=== PATIENT | female | born 1990 | race Caucasian/White ===

== ENCOUNTER 2019-08-15 09:53 | Day surgery (SDC) | payer BC, SELFPAY ==
[2019-08-15] VITALS (8 sets, daily range): BP systolic 103–129; BP diastolic 48–81; PULSE 78–105; RESP 14–17; TEMP 36.7–37; O2SAT 96–99; BMI 28.1
[2019-08-15] MEDS: Ondansetron 4 MG/2 ML Vial IV (10:21)
[2019-08-15] MEDS: Morphine 4 MG/ML Syringe IV (10:21)
[2019-08-15] MEDS: 0.9% Normal Saline 1,000 ML 1000 ML IV (10:22)
--- NOTE | 2019-08-15 10:40 | ED.VIS.GEN ---
History of Present Illness Chief Complaint: Abd Pain Informant: Patient Onset: Today Context: Gradual Onset Timing: Intermittent Current Severity: Moderate Maximum Severity: Moderate Narrative: The patient presents to the emergency department with left lower quadrant abdominal pain and dizziness. She also had nausea. The patient states she was in her normal state of health. She is currently trying to get . She states that she had a sharp pain that started this morning. States when she tries to move her bowels, she would be dizzy. She has not had any vomiting. She denies any fevers or chills. She has had 2 prior C-sections, but no other abdominal surgery. Prior similar symptoms: No Recent Illness/Hospitalization: No Past Medical History - Allergies and Home Meds Allergies/Adverse Reactions: Allergies amoxicillin Allergy (Verified 08/15/19 09:54) Rash Primary Care Physician: Ene Andres NP-C [Primary Care Provider] - Prior records reviewed: Yes Past Medical History: None Surgical History: - - by 2 Lives: With Family Smoking Status: Never smoker Review of Systems General: Denies: Chills, Fever, Sweats Eyes: Denies: Visual changes - bilaterally, Diplopia ENT: Denies: Rhinorrhea, Sore throat Cardiovascular: Denies: Chest pain, Palpitations Respiratory: Denies: Dyspnea, Cough, Dyspnea on exertion Gastrointestinal: Reports: Abdominal pain, Nausea. Denies: Vomiting, Diarrhea, Melena, Hematochezia Genitourinary: Denies: Dysuria, Hematuria, Frequency Musculoskeletal: Denies: Back pain, Extremity Pain Skin: Denies: Rash, Wounds Neurological: Denies: Headache, Weakness, Numbness Physical Exam Vital Signs/Narrative: Vital Signs Temp Pulse Resp BP Pulse Ox 08/15/19 09:54 98.5 F 93 17 129/81 H 96 Inital Vital Signs reviewed: Yes General: Well nourished, Well developed, No Acute Distress Head: Normocephalic, Atraumatic Eyes: Perrl, EOMI ENT: Moist mucous membranes, No rhinorrhea Neck: Supple, Nontender Cardiovascular: Regular rate, Regular rhythm, No murmurs Respiratory: No distress, CTA bilaterally, Chest nontender Abdomen: Soft, Nondistended, Normal bowel sounds, Tender. Negative for: Guarding, Rebound tenderness Back: Nontender, Normal Inspection Extremities: Nontender, No edema Skin: Normal color, No rash Neurological: Alert, Oriented x3, Cranial nerves II-XII grossly intact, Normal Strength, Normal Sensation Psychological: Normal affect, Normal Mood Diagnostic/Tx/Re-eval Clinical Impression(s) from Imaging Studies Obstetrics Ultrasound 08/15/19 11:32 IMPRESSION: Left adnexal mass with suspected hemoperitoneum concerning for ruptured ectopic . N.B. : The above information has been verbally conveyed by Crow Luis MD (Brooks) to Adan Lu MD, on 08/15/2019 12:42:45 (ET). Electronically Signed: Crow Luis MD (Brooks) at 12:47 EDT , Service support , ADDENDUM: 08/15/19 1254 IMPRESSION: Left adnexal mass with suspected hemoperitoneum concerning for ruptured ectopic . N.B. : The above information has been verbally conveyed by Crow Luis MD (Brooks) to Adan Lu MD, on 08/15/2019 12:42:45 (ET). Electronically Signed: Crow Luis MD (Brooks) at 12:47 EDT , Service support , Abnormal Lab Results 08/15/19 08/15/19 08/15/19 10:10 10:10 10:10 WBC 5.6 RBC 4.50 Hgb 14.2 Hct 40.7 MCV 90.4 MCH 31.6 MCHC 34.9 RDW Std Deviation 38.6 RDW Coeff of Juan 11.9 Plt Count 177 MPV 10.4 Immature Gran % (Auto) 0.500 Neut % (Auto) 77.0 H Lymph % (Auto) 14.6 L [place] % (Auto) 5.9 Eos % (Auto) 1.1 Baso % (Auto) 0.9 Absolute Neuts (auto) 4.3 Absolute Lymphs (auto) 0.82 L Nucleated RBC % 0 Sodium 139 Potassium 3.7 Chloride 107 Carbon Dioxide 27.0 Anion Gap 5 BUN 10 Creatinine 0.69 Estim Creat Clear Calc 112.62 Est GFR (MDRD) Af Amer 129 Est GFR (MDRD) Non-Af 106 BUN/Creatinine Ratio 14.5 Glucose 104 Calcium 9.0 Total Bilirubin 0.50 AST 17 ALT 27 Alkaline Phosphatase 48 Total Protein 7.3 Albumin 4.1 Globulin 3.2 Albumin/Globulin Ratio 1.3 HCG, Quant 2177 H Urine Color Urine Clarity Urine pH Ur Specific [place] Urine Protein Urine Glucose (UA) Urine Ketones Urine Occult Blood Urine Nitrite Urine Bilirubin Urine Urobilinogen Ur Leukocyte Esterase Urine RBC Urine WBC Ur Squamous Epith Cells Amorphous Sediment Urine Bacteria Urine Mucus 08/15/19 12:00 WBC RBC Hgb Hct MCV MCH MCHC RDW Std Deviation RDW Coeff of Juan Plt Count MPV Immature Gran % (Auto) Neut % (Auto) Lymph % (Auto) [place] % (Auto) Eos % (Auto) Baso % (Auto) Absolute Neuts (auto) Absolute Lymphs (auto) Nucleated RBC % Sodium Potassium Chloride Carbon Dioxide Anion Gap BUN Creatinine Estim Creat Clear Calc Est GFR (MDRD) Af Amer Est GFR (MDRD) Non-Af BUN/Creatinine Ratio Glucose Calcium Total Bilirubin AST ALT Alkaline Phosphatase Total Protein Albumin Globulin Albumin/Globulin Ratio HCG, Quant Urine Color Yellow Urine Clarity Sl. Cloudy Urine pH 7.0 Ur Specific [place] 1.010 Urine Protein Negative Urine Glucose (UA) Normal Urine Ketones Negative Urine Occult Blood Negative Urine Nitrite Negative Urine Bilirubin Negative Urine Urobilinogen Normal Ur Leukocyte Esterase 25 H Urine RBC 0 SEEN Urine WBC 0-5 SEEN Ur Squamous Epith Cells 10-25 SEEN Amorphous Sediment 1+ Urine Bacteria 0 SEEN Urine Mucus 0 SEEN - Medical Decision Making The patient presents with quadrant pain. She does state that she was trying to get , but thinks she had a normal menstrual. About 2 weeks ago. IV was established. Screening labs were obtained were unremarkable. The patient was not tachycardic or hypotensive. Her quant did return elevated at 2200. With this in her left lower quadrant pain, the patient was sent for a stat ultrasound. This does demonstrate findings consistent with ruptured ectopic. The patient's blood type is A+. She was discussed immediately with DRYER FEEDER and will be taken to the operating room for definitive treatment of ruptured ectopic. Impression 1. Ruptured ectopic ED Disposition - Plan for ED Patient: Referrals: Ene Andres, MAIKOL-C [Primary Care Provider] -
[2019-08-15 10:43] LABS: Absolute Lymphocyte Count 0.82 X10^3/uL (0.83-4.51); Absolute Neutrophil Count 4.3 X10^3/uL (2.0-7.7); Basophil# 0.05 X10^3/uL; Basophil% 0.9 % (0-1); Eosinophil# 0.06 X10^3/uL; Eosinophils% 1.1 % (0-5); Hematocrit 40.7 % (37-47); Hemoglobin 14.2 g/dL (12.0-15.0); Lymphocyte # 0.82 X10^3/ul (4.0); Lymphocyte % 14.6 % (19-41); Mean Corp Hgb Conc 34.9 g/dL (32-36); Mean Corpuscular Hgb 31.6 pg (27.0-32.0); Mean Corpuscular Volume 90.4 fL (81-99); Mean Platelet Vol. 10.4 fl (6.2-12.0); Monocyte# 0.33 X10^3/uL; Monocyte% 5.9 % (0-10); NRBC Flagged by Analyzer 0 % (0-5); Neutrophil # 4.31 X10^3/uL (2.7-7.7); Platelet Count 177 K/mm3 (150-450); RBC Distribution Width CV 11.9 % (11.6-14.6); RBC Distribution Width SD 38.6 fl (35.1-43.9); White Blood Count 5.6 K/mm3 (4.4-11.0)
[2019-08-15 11:08] LABS: ALB/GLOB Ratio 1.3 RATIO (0.9-2.4); AST(SGOT) 17 U/L (15-37); Alanine Aminotransfer ALT/SGPT 27 U/L (13-56); Albumin, Serum 4.1 g/dL (3.2-5.0); Alkaline Phosphatase 48 U/L (45-117); Anion Gap 5 (5-15); BUN 10 mg/dL (7-18); BUN/Creat Ratio 14.5 RATIO (10-20); Chloride 107 mmol/L (98-107); Creatinine, Serum 0.69 mg/dL (0.55-1.02); EST Glomerular Filtration Rate 106 mL/min (>60); Est Glom Filt Rate - Afr Amer 129 mL/min (>60); Estimated Creatinine Clearance 112.62 ml/min; Globulin 3.2 g/dL (2.2-4.2); Glucose 104 mg/dL (74-106); Potassium 3.7 mmol/L (3.5-5.1); Protein, Total 7.3 g/dL (6.4-8.2); Sodium Level 139 mmol/L (136-145)
[2019-08-15 11:30] LABS: hCG Titer Quant., Serum 2177 mIU/mL (1-3)
--- NOTE | 2019-08-15 11:32 | US_ITS ---
STUDY: FIRST TRIMESTER OBSTETRICAL ULTRASOUND REASON FOR EXAM: Female, 29 years old pelvic pain with nausea. HCG-2177 LMP: 08/01/2019 TECHNIQUE: Transvaginal TECHNICAL QUALITY: Adequate. PRIOR ULTRASOUND: None. FINDINGS: Heterogeneous hypoechoic to isoechoic mass (3.3 x 3.0 cm in the region of the left adnexa with complex partially anechoic central structure measuring 1.4 cm) best seen on image 91 of the third image set. There is moderate fluid within the pelvis with low-level spectral flow site. The uterus measures 9.0 x 6.5 x 5.1 cm. There is no demonstrated uterine fibroid. The cervix is closed. The right ovary measures 4.0 x 3.0 x 2.0 cm. There are multiple follicles of the right ovary without a dominant cyst. There is no visualized right adnexal mass or complex lesion. The left ovary measures 6.4 x 6.2 x 5.4 cm. Small follicles identified with dominant follicle measuring 2.4 cm. There is no visualized left adnexal mass or complex lesion. There is no fluid in the cul de sac. US/Transvaginal w/Preg US IMPRESSION: Left adnexal mass with suspected hemoperitoneum concerning for ruptured ectopic . N.B. : The above information has been verbally conveyed by Crow Luis MD (Brooks) to Adan Lu MD, on 08/15/2019 12:42:45 (ET). Electronically Signed: Crow Luis MD (Brooks) at 12:47 EDT , Service support ,
[2019-08-15 12:06] LABS: Bacteria 0 SEEN /hpf (None Seen); Mucous, Urine 0 SEEN /hpf (<or=2+); Red Blood Cells-Urine 0 SEEN /hpf (0-5)
[2019-08-15 12:15] LABS: Color, Urine Yellow (Yellow); Glucose, Dipstick Normal (Normal); Ketone-Dipstick Negative (Negative); Leukocyte Esterase-Dipstick 25 /ul (Negative); Nitrite-Dipstick Negative (Negative); Occult Blood-Urine Negative /ul (Negative); Protein-Dipstick Negative (Negative); Urine Bilirubin Dipstick Negative (Negative); Urine Clarity Sl. Cloudy (Clear); Urine Urobilinogen Normal (Normal)
[2019-08-15 12:20] LABS: Amorphous Sediment 1+; Squamous Epithelial Cells - UA 10-25 SEEN /hpf (5-10); White Blood Cells 0-5 SEEN /hpf (0-5)
[2019-08-15] MEDS: fentaNYL 100 MCG/2 ML Ampul 50 MCG IV ×2 (12:54→13:25)
--- NOTE | 2019-08-15 13:45 | PCM.HP.BLA ---
History and Physical Date of Admission: 08/15/19 29-year-old 3 para 2 with a last menstrual period of approximately 2 weeks ago presents complaining of acute lower abdominal pain. At the little bit worse on the left than the right. But it radiates across her entire abdomen. She woke up with it at 5:30 AM. She has been attempting . She is had some nausea because the pain is intense. Nothing like this before. Morphine she received earlier in the fentanyl helped the pain for short amounts of time, but then it comes back in waves. Review of systems: General: No fevers or chills Cardiac: No chest pain or shortness of breath Respiratory: No cough Heme: No history of DVT, no history of prolonged bleeding or easy bruising Gynecology: No abnormal vaginal discharge, itching or burning. Menstrual cycles are regular. Past surgical history: 2 previous sections without complications. There are abdominal surgeries. She is also had surgery for pectus excavatum. Allergies: Amoxicillin She will history: Patient denies any drug, tobacco or alcohol use. Physical exam: See vitals General: Awake, alert, moderate distress. Trouble lying still in the bed. Affect: Answers questions appropriately, makes eye contact Skin: Warm dry and intact Abdomen soft, nondistended, diffusely tender. Worse suprapubic and left lower quadrant. Some rebound and guarding in these areas. 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 Ultrasound reviewed consistent with ruptured ectopic . Assessment and plan: 29-year-old 3 para 2 with a last menstrual period of approximately 2 weeks ago with a ruptured ectopic , likely on the left. Risk benefits and alternatives to surgical intervention were discussed with the patient, her questions were answered to her satisfaction and she agrees to proceed. Discussed with her removal of ectopic and possible removal of fallopian tube. Consent was signed by the patient and her . Case was discussed and reviewed with the ER physician Dr. Watkins who requested this consultation.
--- NOTE | 2019-08-15 14:03 | ED.RN ---
REPORT GIVEN TO OR.
--- NOTE | 2019-08-15 14:15 | FAL_PTH ---
PATIENT: STEVEN GANDHI LOC: [facility] [place] U#:[id number] AGE/SX: 29/F ROOM: RE08/15/[address]: Dr. Yojana Ellis MD : 1990 BED: DIS: 08/15/2019 SPEC #: [id number] RECD: 08/17/19 07:33 STATUS: NATALIE BREANNE #: [id number] EULALIO: 08/15/19 14:[address]: Yojana Ellis DEPT: SURGICAL PATHOLOGY RECD BY: Valentina Riddle ENTERED: 08/17/19 09:27 SP TYPE: ECTOPIC OTHR DR: Ene Andres, [place] Tissues: ECTOPIC PREG Procedures: Surgery Specimen Level IV HEADER OPERATION: Laparoscopic, left ovarian cystectomy PRE-OP DIAGNOSIS: Ectopic TISSUE SUBMITTED: Possible ectopic MICROSCOPIC DIAGNOSIS Possible ectopic , left ovarian cystectomy: Immature chorionic villi, decidua, minute fragments of ovarian tissue and blood clots (ectopic ). VENESSA:nicholas 08/18/19 MICROSCOPIC DESCRIPTION Slides are reviewed. GROSS DESCRIPTION Received in fixative is one container labeled with the patient's name and designated possible ectopic. The specimen consists of multiple fragments of blood clot that in aggregate measure 5 x 2.5 x 0.4 cm. The entire specimen is submitted in two cassettes. / VENESSA:nicholas 08/17/19 TC:5 CPT: 54029
[2019-08-15] MEDS: Bupivacaine Mpf 0.5% 30 ML VIAL (14:47)
--- NOTE | 2019-08-15 15:28 | DCINST_ITS ---
Discharge Diet: No Restrictions - Increase fluid intake for the next 48 hours. Discharge Activity: Return to Normal Activity, May Drive - when you are no longer taking pain/narcotic meds., May Shower, May Take a Tub Bath - in 7 days May shower in (days): 1 May resume sexual activity in: 1 week Additional Activity Instructions:: Ambulate often the next week after surgery. Nothing in the vagina for 5 days. Call your doctor if your incision/area has: Continuous Slow Oozing, Sudden Increased Bleeding, Increased Pain/ Swelling, Increased Redness, Foul Smelling Discharge Call your doctor if you observe: Fever of 101 or Higher, Uncontrolled pain Cleanse incision/area with: Soap & Water, - - Patient have skin glue. It can get wet. Leave it on until it peels off. Additional Instructions: Have a repeat HCG hormone level drawn in 2 days. Allergies/Adverse Reactions: Allergies amoxicillin Allergy (Verified 08/15/19 09:54) Rash Medications to take at Discharge Hydrocodone/Acetaminophen [Jones 5-325 Tablet] 1 ea PO Q4H PRN PRN 4 Days #10 tab 08/15/19 Ondansetron HCl [Zofran] 4 mg PO Q8 PRN #10 tab 08/15/19 Progesterone, Micronized [Prometrium] 200 mg PO QHS #30 cap 08/15/19 The following prescriptions were given: Progesterone, Micronized [Prometrium] 200 mg PO QHS #30 cap Transmission Status: Pending to [facility] Primary Care Physician: Ene Andres, MAIKOL-C [Primary Care Provider] - Test Results: Test results from this visit will be discussed in further detail at your follow- up appointment, if applicable. Please Follow Up With: Yojana Ellis MD - [phone] When: 1-2 weeks
--- NOTE | 2019-08-15 15:29 | PCM.OPRPT ---
Report of Operation Date of Procedure: 08/15/19 Pre-Operative Diagnosis: acute abdominal pain, hemoperitoneum, suspected ruptured ectopic Post-Operative Diagnosis: hemoperitoneum, ruptured left ovarian cyst Surgery/Procedure Performed:: Evacuation of hemoperitoneum and control of being left ovarian cyst, partial removal of left ovarian cyst Description of Surgical Findings:: Normal-appearing tubes bilaterally. Normal-appearing right ovary. 2 filmy adhesions, 1 of the uterus to the anterior abdominal wall and 1 of the omentum to the anterior abdominal wall that were taken down. These were each less than 1 cm in diameter and filmy, moderate amount of blood in the peritoneal cavity, left ovarian cyst that was still actively bleeding with a large clot adhered to it. any commodity sales deliverer: Diann Wyatt Type of Anesthesia:: General Anesthesiologist: Juanita Rogers Special Medications: none Specimen's removed: Clots and debris from the peritoneal cavity, possible ectopic material, left ovarian cyst contents Drains: none Estimated Blood Loss (mL): 200 Fluids Replaced: 1000cc Description of Procedure: Patient was taken the operating room where she is prepped and draped in dorsal lithotomy position with her arms tucked at her sides. She was placed in a neurologically safe in neutral position. Legs were in the yellowfin stirrups. A weighted speculum was placed in the vagina. The anterior lip the cervix was grasped with a tenaculum and the Conn cannula uterine manipulator was placed in the cervix. A straight catheterization had been done during the prepping. Attention was then turned to the abdomen. Half percent Marcaine was used to inject the skin incision sites locally before incisions were made. A 5 mm infraumbilical incision was made with scalpel and while tenting the anterior abdominal wall up, 5 mm trocar and sleeve were placed directly in the peritoneal cavity. Intraperitoneal placement was confirmed with the laparoscope, pneumoperitoneum was created, the patient was placed in Trendelenburg. Above findings were noted. The small filmy adhesions were taken down sharply with the scissors. The suction recording studio setup worker was used to remove a large amount of blood and clots from the peritoneal cavity. It was then obvious that the left ovary was the site of the hemorrhage. After the clot was removed from the ovary, a small cyst could be noted that was still actively bleeding. The cyst was opened slightly and part of the wall was taken out. I then used cautery to cauterize the edges of the incision. Suction recording studio setup worker was used to irrigate the area and hemostasis was noted. Some Rhianna was placed over this site. At this point, irrigation was used to irrigate as much of the hemoperitoneum as possible out of the peritoneal cavity. Some pieces of clot were removed, that were unable to be broken up with the suction recording studio setup worker. These were sent to pathology in case they were products of conception. However, my suspicion is not that she had an ovarian ectopic, but that she had actually ruptured her corpus luteum. At this point, some Rhianna was placed over the ovarian cyst site, and it was hemostatic. The pneumoperitoneum was released. The trochars were removed. Skin incisions were closed by the EXTENSION WORK INSTRUCTOR with me present in the operative suite. I remove the vaginal instruments and performed the vaginal sweep. All sponge needle counts were correct. The Conn cannula was confirmed to be intact when it was removed. Patient was taken to recovery room in stable condition. Grafts/Implants Used: none - Complications none - Admit VTE Documentation VTE Present on Admission: No VTE Mechan Device Prophylaxis: SCD's VTE Pharm Prophylaxis ordered?: No Reason prophylaxis not ordered:: Procedure Not Indicated
[2019-08-15] MEDS: HYDROcodone Bitartrate/Apap 5/325 Tablet PO (16:44)
== END 2019-08-15 17:38 | disposition home or self-care (01) ==
LOC: ED 10:26 → SDC 14:07 → AC 14:08
PROVIDERS: Emergency Provider Emergency Medicine; Family Provider Nurse Practitioner Primary Care; PCP Nurse Practitioner Primary Care; Referring Provider Obstetrics & Gynecology; Visit Provider Obstetrics & Gynecology
PROC: 10T24ZZ Resection of Products of Conception, Ectopic, Percutaneous Endoscopic Approach (ICD-10-PCS; CPT 59150; principal; 2019-08-15 14:15)
DX: K66.1 Hemoperitoneum (principal); N83.202 Unspecified ovarian cyst, left side; Z88.0 Allergy status to penicillin
CPT/HCPCS: 00840; 58662; 76817; 80053; 81001; 84702; 85025; 86900; 86901; 88305; 99282; J7030; A4216; J2405

== ENCOUNTER → 2020-04-21 | Outpatient (CLI) | payer BC, SELFPAY ==
[2019-08-15 13:16] VITALS: BMI 28.1
[2020-04-21 19:03] LABS: Chlamydia Trachomatis by PCR Negative (Negative); Neisserai gonorrhoeae by PCR Negative (Negative); Probe Check PASS; Sample Adequacy Control PASS; Specimen Processing Control PASS
[2020-04-27 20:07] LABS: Age Gdln ACOG Testing 30-65 (.)
[2020-04-30 17:48] LABS: HPV APTIMA, High Risk Negative (Negative); HPV Reflexed? YES, CHARGE PATIENT
== END | disposition home or self-care (01) ==
LOC: LABSPEC 15:56
PROVIDERS: PCP Nurse Practitioner Primary Care; Referring Provider Obstetrics & Gynecology; Visit Provider Obstetrics & Gynecology
DX: Z12.4 Encounter for screening for malignant neoplasm of cervix (principal); Z11.3 Encounter for screening for infections with a predominantly sexual mode of transmission
CPT/HCPCS: 87491; 87591; 87624; 88175; G0145

== ENCOUNTER → 2020-05-12 16:48 | Outpatient (CLI) | payer BC, SELFPAY ==
[2019-08-15 13:16] VITALS: BMI 28.1
[2020-05-12 17:23] LABS: Absolute Lymphocyte Count 1.49 X10^3/uL (0.83-4.51); Absolute Neutrophil Count 6.3 X10^3/uL (2.0-7.7); Basophil# 0.04 X10^3/uL; Basophil% 0.5 % (0-1); Eosinophil# 0.07 X10^3/uL; Eosinophils% 0.8 % (0-5); Hematocrit 37.8 % (37-47); Hemoglobin 13.5 g/dL (12.0-15.0); Lymphocyte # 1.49 X10^3/ul (4.0); Lymphocyte % 17.9 % (19-41); Mean Corp Hgb Conc 35.7 g/dL (32-36); Mean Corpuscular Hgb 32.2 pg (27.0-32.0); Mean Corpuscular Volume 90.2 fL (81-99); Mean Platelet Vol. 10.9 fl (6.2-12.0); Monocyte# 0.47 X10^3/uL; Monocyte% 5.6 % (0-10); NRBC Flagged by Analyzer 0 % (0-5); Neutrophil # 6.26 X10^3/uL (2.7-7.7); Neutrophil % 75.1 % (47-70); Platelet Count 214 K/mm3 (150-450); RBC Distribution Width CV 11.8 % (11.6-14.6); RBC Distribution Width SD 38.5 fl (35.1-43.9); Red Blood Count 4.19 M/mm3 (4.2-5.4); White Blood Count 8.3 K/mm3 (4.4-11.0)
[2020-05-12 17:46] LABS: Color, Urine Yellow (Yellow); Glucose, Dipstick Normal (Normal); Ketone-Dipstick Negative (Negative); Leukocyte Esterase-Dipstick Negative /ul (Negative); Nitrite-Dipstick Negative (Negative); Occult Blood-Urine Negative /ul (Negative); Protein-Dipstick Negative (Negative); Urine Bilirubin Dipstick Negative (Negative); Urine Clarity Cloudy (Clear); Urine Urobilinogen 1 mg/dl (Normal)
[2020-05-12 18:40] LABS: Amphetamine Urine VISTA NEGATIVE (<1000 ng/mL); Barbiturate Urine VISTA NEGATIVE (< 200 ng/mL); Benzodiazepine Urine VISTA NEGATIVE (< 200 ng/mL); Cocaine Urine VISTA NEGATIVE (< 300 ng/mL); Ecstacy Urine VISTA NEGATIVE (< 500 ng/mL); Methadone Urine VISTA NEGATIVE (< 300 ng/mL); PCP Urine VISTA NEGATIVE (< 25 ng/mL); THC Urine VISTA NEGATIVE (< 50 ng/mL); Thyroid Stim Hormone (TSH) 0.82 uIU/mL (0.358-3.74); Vista UDS pH Range 7
[2020-05-13 09:29] LABS: HIV - WCH Non-Reactive (Nonreactive); Hepatitis B Surface Antigen Non-Reactive (Nonreactive); Hepatitis C Antibody Non-Reactive (Nonreactive); Rubella IgG 248.7 IU/mL
[2020-05-19 02:24] LABS: Prenatal RPR NONREACTIVE (NONREACTIVE)
== END ==
PROVIDERS: PCP Nurse Practitioner Primary Care; Visit Provider Obstetrics & Gynecology
DX: Z34.81 Encounter for supervision of other normal pregnancy, first trimester (principal)
CPT/HCPCS: 36415; 80307; 81002; 84443; 85025; 86703; 86762; 86803; 87340

== ENCOUNTER → 2020-09-20 15:20 | Outpatient (CLI) | payer OTHER, SELFPAY ==
[2019-08-15 13:16] VITALS: BMI 28.1
[2020-09-20 15:48] LABS: Hematocrit 35.4 % (37-47); Hemoglobin 11.9 g/dL (12.0-15.0); Mean Corp Hgb Conc 33.6 g/dL (32-36); Mean Corpuscular Hgb 31.9 pg (27.0-32.0); Mean Corpuscular Volume 94.9 fL (81-99); Mean Platelet Vol. 10.5 fl (6.2-12.0); Platelet Count 206 K/mm3 (150-450); RBC Distribution Width CV 13.4 % (11.6-14.6); RBC Distribution Width SD 46.6 fl (35.1-43.9); Red Blood Count 3.73 M/mm3 (4.2-5.4); White Blood Count 9.3 K/mm3 (4.4-11.0)
[2020-09-20 16:26] LABS: Glucose Challenge Gest 1H 50g 88 mg/dL (70-140)
== END ==
PROVIDERS: PCP Nurse Practitioner Primary Care; Visit Provider Student in an Organized Health Care Education/Training Program
DX: Z34.83 Encounter for supervision of other normal pregnancy, third trimester (principal)
CPT/HCPCS: 36415; 82950; 85027

== ENCOUNTER → 2020-11-25 10:16 | Outpatient (CLI) | payer BC, SELFPAY ==
[2019-08-15 13:16] VITALS: BMI 28.1
== END ==
PROVIDERS: PCP Nurse Practitioner Primary Care; Referring Provider Obstetrics & Gynecology; Visit Provider Obstetrics & Gynecology
DX: Z03.818 Encounter for observation for suspected exposure to other biological agents ruled out (principal)
CPT/HCPCS: 87635; C9803; U0005; U0003

== ENCOUNTER 2020-12-01 05:00 | Inpatient (IN) | payer BC, SELFPAY ==
[2019-08-15 13:16] VITALS: BMI 28.1
[2020-12-01] VITALS (16 sets, daily range): BP systolic 83–114; BP diastolic 38–71; PULSE 66–93; RESP 16–18; TEMP 35.9–36.7; O2SAT 78–100; BMI 34.2
[2020-12-01] MEDS: Lactated Ringers 1,000 ML 999 ML IV ×3 (05:30→11:27)
[2020-12-01 05:45] LABS: Absolute Lymphocyte Count 1.65 X10^3/uL (0.83-4.51); Absolute Neutrophil Count 7.1 X10^3/uL (2.0-7.7); Basophil# 0.05 X10^3/uL; Basophil% 0.5 % (0-1); Eosinophil# 0.08 X10^3/uL; Eosinophils% 0.8 % (0-5); Hematocrit 31.4 % (37-47); Hemoglobin 10.6 g/dL (12.0-15.0); Lymphocyte # 1.65 X10^3/ul (4.0); Lymphocyte % 17.3 % (19-41); Mean Corp Hgb Conc 33.8 g/dL (32-36); Mean Corpuscular Hgb 30.9 pg (27.0-32.0); Mean Corpuscular Volume 91.5 fL (81-99); Mean Platelet Vol. 10.6 fl (6.2-12.0); Monocyte# 0.57 X10^3/uL; NRBC Flagged by Analyzer 0 % (0-5); Neutrophil % 74.4 % (47-70); Platelet Count 162 K/mm3 (150-450); RBC Distribution Width CV 13.7 % (11.6-14.6); RBC Distribution Width SD 45.4 fl (35.1-43.9); Red Blood Count 3.43 M/mm3 (4.2-5.4); White Blood Count 9.6 K/mm3 (4.4-11.0)
[2020-12-01] MEDS: Acetaminophen 500 MG Tablet 1000 MG PO ×4 (06:16→23:43)
[2020-12-01] MEDS: Lactated Ringers 1,000 ML 150 ML IV (06:33)
[2020-12-01] MEDS: Sodium Citrate/Citric Acid 30 ML UDC PO (07:08)
--- NOTE | 2020-12-01 07:10 | PCM.HPOB.BLA ---
History and Physical Date of Admission: 12/01/20 HPI 30 yo at 39/0, KIAH 12/08/20 by LMP, admitted for repeat section. Denies LOF, VB, contractions. +FM. This is complicated by: resolved polyhydramnios Obstetrical History G1: FT c/s G2: FT c/s G3: ectopic G4: current Past Medical History Hx of kidney reflux Medications PNV Past Surgical History section x2, ovarian ectopic Social History Tobacco use: denies Alcohol use: denies Illicit drug use: denies Labs Blood type: A pos Rubella: immune Hep B/C: neg/neg HIV: neg RPR: nonreactive 1 hour GTT: wnl GBS: unknown Allergies Amoxicillin --> rash, itchy. No throat swelling or difficulty breathing Review of Systems General: alert and oriented HEENT: _denies change of vision Heart/lungs: _denies CP, SOB GI: _denies nausea, vomiting, dysuria, diarrhea MSK: _denies calf pain, tenderness Physical Exam Vital Signs Temp Pulse Resp BP Pulse Ox 12/01/20 06:01 97.9 F 93 16 114/71 99 General: a&o x3, NAD HEENT: normocephalic, atraumatic Cardio: no JVD Resp: no increased work in breathing Abdomen: soft, gravid, nontender Extremities: minimal edema Labs Laboratory Results - last 24 hr 12/01/20 12/01/20 05:30 05:30 WBC 9.6 RBC 3.43 L Hgb 10.6 L Hct 31.4 L MCV 91.5 MCH 30.9 MCHC 33.8 RDW Std Deviation 45.4 H RDW Coeff of Juan 13.7 Plt Count 162 MPV 10.6 Immature Gran % (Auto) 1.000 H Neut % (Auto) 74.4 H Lymph % (Auto) 17.3 L [place] % (Auto) 6.0 Eos % (Auto) 0.8 Baso % (Auto) 0.5 Absolute Neuts (auto) 7.1 Absolute Lymphs (auto) 1.65 Nucleated RBC % 0 Blood Type A POSITIVE Antibody Screen NEGATIVE Assessment & Plan 30 yo at 39/0, KIAH 12/08/20 by LMP, admitted for repeat section. This is complicated by: resolved polyhydramnios Admit to L&D - Routine orders - Plan for repeat section. R/B/A discussed. Risks include, but are not limited to: risk of bleeding to the point of transfusion, infection, injury to surrounding tissue (bowel or bladder requiring prolonged mendoza use), VTE, ICU admission. Pt aware and consented. - Anesthesia to see
--- NOTE | 2020-12-01 07:25 | OP.PCM_ITS ---
Delivery Classification: Scheduled Final KIAH: 12/08/20 Final KIAH Source: LMP Gestational age: 39 Weeks and 0 Days Type of Anesthesia:: Spinal Date of Procedure: 12/01/20 Pre-Operative Diagnosis: Repeat section Post-Operative Diagnosis: Repeat section Indications: 30-year-old G4, P2 at 39 weeks and 0 days plan for repeat section. Risks, benefits, alternatives discussed with patient. Risks include but are not limited to: Risk of bleeding to the point of transfusion, infection, injury to surrounding tissue including bowel or bladder requiring prolonged Hernandez catheter use, VTE, ICU admission. Patient aware and consented Indications for : Repeat Elective Description of Procedure: Patient taken to the operating room spinal anesthesia placed. Patient placed in the supine position with left lateral tilt and prepped and draped in usual sterile fashion. Pfannenstiel skin incision made with scalpel, noting extensive subcutaneous and fascial adhesions. Careful dissection completed with the use of scalpel, followed by hemostat elevating the fascial adhesions to allow Bovie to incise. Peritoneal window noted between scar tissue. Dean clamps placed on the superior fascial edge which was tented up and underlying scar tissue dissected off using scalpel. Dean clamps moved to inferior fascial edge and this was completed in a similar fashion. 2 hemostats were used to grasp at the midline superiorly where thin scar tissue was noted and incised between using Metzenbaum scissors. Peritoneum entered. Peritoneal opening dissected superiorly using Manning scissors. Followed by blunt dissection. Bladder blade pl aced. Vesicouterine peritoneum identified and bladder flap created using Metzenbaum scissors. Low transverse uterine incision made with scalpel, uterus noted to be thin in this area. Hand placed in the uterus and with the assistance of gentle fundal pressure head delivered followed by body, no nuchal cord. Cord clamped and cut, baby handed to nursing. Manual extraction of placenta. Uterus exteriorized and cleared of all clots. Run locking stitch used to close the hysterotomy. Second vertical imbricating stitch used for hemostasis. Uterus replaced in the abdomen incision closure continue to be hemostatic. Peritoneum closed with a running stitch. Fascia closed with a running stitch. Subcutaneous tissue reapproximated with a running stitch. Skin closed with running subcuticular stitch. At the end of the procedure all needle, lap, sponge counts were correct x3.UOP 100cc clear urine. Amniotic Membrane Rupture Type: Artificial Amniotic Fluid Description: Clear Fluids Replaced: 1L Cord Entanglement: None Cord Vessel Description: 3 Vessels Esitmated Blood Loss (ml): 700cc Gender: Male (1 minute): 8 (5 minute): 9 Delayed cord clamping: Yes
--- NOTE | 2020-12-01 07:26 | DCINST_ITS ---
Discharge Diet: No Restrictions Discharge Activity: Return to Normal Activity, May not drive while taking narcotic pain medications., May Shower May resume sexual activity in: 6-8 weeks Weight Bearing Status: Weight bearing as tolerated Call your doctor if your incision/area has: Continuous Slow Oozing, Sudden Increased Bleeding Call your doctor if you observe: Fever of 101 or Higher, Inability to urinate, Inability to have a bowel movement, Using more than one pad per hour, Shortness of breath, Chest pain, Uncontrolled pain Cleanse incision/area with: Soap & Water Additional Instructions: If you experience any of the following, contact your healthcare provider. * Bleeding that soaks a pad every hour for 2 hours * Fever 100.4 or higher * Unrelieved incision or abdominal pain * Swelling, redness, discharge or bleeding from your incision or episiotomy site * Your incision begins to separate * Problems urinating (including inability to urinate or burning while urinating). * Visual changes * Severe headache * Flu-like symptoms * Pain or redness in one of both of your breasts * Pain, warmth, tenderness or swelling in your legs, especially the calf area * Frequent nausea and vomiting * Symptoms of depression or anxiety If you experience any of the following, call 911 or go to the nearest Emergency Room. * Chest pain * Problems breathing * Seizure activity * Partial or complete paralysis of a body part, slurred speech, weakness or drooping of the face, or a sudden inability to walk or hold your balance Allergies/Adverse Reactions: Allergies amoxicillin Allergy (Verified 12/01/20 05:27) Rash Medications to take at Discharge Doxylamine Succinate [Unisom] 25 mg PO PRN PRN 12/01/20 Lactobacill 46/B.animal/Inulin [Probiotic-10 10 Bill Cell Cap] 1 cap PO DAILY 12/01/20 Pnv No.95/Ferrous Fum/Folic AC [ Caplet] 1 tab PO DAILY 12/01/20 Oxycodone [Oxyir] 5 mg PO Q6H PRN PRN 4 Days #16 tab 12/02/20 The following prescriptions were given: Oxycodone [Oxyir] 5 mg PO Q6H PRN PRN 4 Days #16 tab PRN Reason: Pain Score 6-10 Transmission Status: [facility] by [facility] Follow-Up: Call to make an appointment with your doctor for an incision check in 1-2 weeks. You will also need a 6 week post- follow up appointment. Test results from this visit will be discussed in further detail at your follow- up appointment, if applicable. Please Follow Up With: Kathy Islas DO When: 2 week incision check, 6 week Primary Care Physician: Ene Andres NP, [employer] SLAKER-C [Primary Care Provider] -
[2020-12-01] MEDS: Oxytocin 30 units/NS 500 ml 30 UNITS/500 ML IV.SOLN 167 UNITS IV (08:46)
[2020-12-01] MEDS: Lactated Ringers 1,000 ML 100 ML IV (11:00)
[2020-12-01] MEDS: Ketorolac 30 MG/ML Syringe IV ×3 (11:54→23:48)
--- NOTE | 2020-12-01 13:09 | NURSING ---
This nursing home aide reviewed the documentation completed by Tio Burroughs, student nurse.
[2020-12-01] MEDS: Enoxaparin 40 MG/0.4 ML Syringe SC (19:56)
--- NOTE | 2020-12-01 23:33 | NURSING ---
pt has indwelling urinary catheter
[2020-12-01] MEDS: 0.9% Saline Lock 10 ML Syringe IV (23:48)
[2020-12-02] VITALS: BP 100/63; PULSE 74; RESP 16; TEMP 36.7; O2SAT 97
[2020-12-02 04:50] VITALS: BP 98/64; PULSE 75; RESP 16; TEMP 36.9
[2020-12-02 05:55] LABS: Hematocrit 28.3 % (37-47); Hemoglobin 9.6 g/dL (12.0-15.0); Mean Corp Hgb Conc 33.9 g/dL (32-36); Mean Corpuscular Hgb 31.2 pg (27.0-32.0); Mean Corpuscular Volume 91.9 fL (81-99); Platelet Count 128 K/mm3 (150-450); RBC Distribution Width CV 13.9 % (11.6-14.6); RBC Distribution Width SD 46.5 fl (35.1-43.9); Red Blood Count 3.08 M/mm3 (4.2-5.4); White Blood Count 9.9 K/mm3 (4.4-11.0)
[2020-12-02] MEDS: Ketorolac 30 MG/ML Syringe IV (06:17)
[2020-12-02] MEDS: Acetaminophen 500 MG Tablet 1000 MG PO ×3 (06:17→18:51)
[2020-12-02 08:30] VITALS: BP 93/61; PULSE 80; RESP 16; TEMP 36.2
--- NOTE | 2020-12-02 08:33 | PCM.PN.OB ---
Subjective: No overnight complaints pain well controlled. - Physical Exam Vitals/I&O's: Vital Signs Temp Pulse Resp BP Pulse Ox 98.5 F 75 16 98/64 97 12/02/20 04:50 12/02/20 04:50 12/02/20 04:50 12/02/20 04:50 12/02/20 00:00 Oxygen Delivery Method Room Air Weight: 212 lb 6.4 oz Body Mass Index (BMI) 34.2 Intake and Output for Last 24 Hours 11/30/20 12/01/20 12/02/20 23:59 23:59 23:59 Intake Total 4717.05 / 4717.05 Output Total 2700 / 2700 1949 Balance 2016. General: Alert, Oriented x3, Cooperative, No apparent distress HEENT: Atraumatic, Normocephalic Oral: Moist Mucosa Neck: Supple Abdomen: Soft, Non Tender, - - Bandage dry and intact. Uterus firm and below umbilicus Extremities: No clubbing, No cyanosis Neurological: Neuro grossly intact Psych/Mental Status: Normal Affect, Appropriate, Alert and oriented to time, place, person, mood and affect Laboratory Results 12/02/20 05:45: WBC 9.9, RBC 3.08 L, Hgb 9.6 L, Hct 28.3 L, MCV 91.9, MCH 31.2, MCHC 33.9, RDW Std Deviation 46.5 H, RDW Coeff of Juan 13.9, Plt Count 128 L, MPV 10.0 Current Medications Acetaminophen (Acetaminophen 500 Mg Tablet) 1,000 mg PO Q6H [facility] Last Admin: 12/02/20 06:17 Dose: 1,000 mg Documented by: Bisacodyl (Bisacodyl 10 Mg Suppository) 10 mg RECTAL UD PRN PRN Reason: If no BM Diphenhydramine HCl (Diphenhydramine 25 Mg Capsule) 25 mg PO Q6H PRN PRN PRN Reason: ITCHING Stop: 12/02/20 08:51 Enoxaparin Sodium (Enoxaparin 40 Mg/0.4 Ml Syringe) 40 mg SC DAILY [facility] Last Admin: 12/01/20 19:56 Dose: 40 mg Documented by: Hydrocortisone (Hydrocortisone 2.5% Crm) 1 applic TOPICAL TID PRN PRN; Protocol PRN Reason: Discomfort Ibuprofen (Ibuprofen 600 Mg Tablet) 600 mg PO Q6 [facility] Lactobacillus Acidophilus (Lactobacillus Acidophilus) 1 tablet PO DAILY [facility] Last Admin: 12/01/20 14:29 Dose: Not Given Documented by: Nalbuphine HCl (Nalbuphine 10 Mg/Ml Ampul) 5 mg IV Q3H PRN PRN PRN Reason: ITCHING Stop: 12/02/20 08:51 Naloxone HCl (Naloxone 0.4 Mg/Ml Syringe) 0.02 mg IV Q1M PRN PRN Reason: RR <10 and pt unresponsive Ondansetron HCl (Ondansetron 4 Mg/2 Ml Vial) 4 mg IV Q4H PRN PRN PRN Reason: Nausea Oxycodone HCl (Oxycodone 5 Mg Tablet) 5 - 10 mg PO Q4H PRN PRN PRN Reason: Pain Score 4-10 Multivit/Folic Acid/Iron ( Vits Tablet) 1 tablet PO DAILY@1200 [facility] Last Admin: 12/01/20 14:29 Dose: Not Given Documented by: Prochlorperazine Edisylate (Prochlorperazine 10 Mg/2 Ml Vial) 10 mg IV Q6H PRN PRN PRN Reason: NAUSEA Senna/Docusate Sodium (Senna/Docusate Sodium 1 Tablet) 1 - 2 tablet PO DAILY [facility] Last Admin: 12/01/20 14:12 Dose: Not Given Documented by: Simethicone (Simethicone 80 Mg Tablet) 80 mg PO PCHS PRN PRN Reason: Indigestion/stomach pain Last Admin: 12/02/20 05:38 Dose: 80 mg Documented by: Sodium Chloride (0.9% Saline Lock 10 Ml Syringe) 5 - 15 ml IV UD PRN PRN Reason: SALINE FLUSH Last Admin: 12/01/20 23:48 Dose: 10 ml Documented by: Zolpidem Tartrate (Zolpidem Tartrate 5 Mg Tablet) 5 mg ORAL QHS PRN PRN PRN Reason: Insomnia Medical Necessity - Tobacco Use Smoking Status: Never smoker Assessment/Plan Postoperative day 1 status post repeat . Pain well controlled. Desires to discharge home tomorrow.
[2020-12-02] MEDS: Prenatal Vits Tablet 1 TABLET PO (10:29)
[2020-12-02] MEDS: Enoxaparin 40 MG/0.4 ML Syringe SC (10:30)
[2020-12-02] MEDS: Senna/Docusate Sodium 1 Tablet PO (10:30)
[2020-12-02] MEDS: Ibuprofen 600 MG Tablet PO ×2 (12:06→18:51)
[2020-12-02 14:10] VITALS: BP 105/58; PULSE 89; RESP 16; TEMP 36.6
[2020-12-02 19:58] VITALS: BP 114/67; PULSE 80; RESP 18; TEMP 36.4; O2SAT 97
[2020-12-03] MEDS: Acetaminophen 500 MG Tablet 1000 MG PO ×3 (00:48→12:25)
[2020-12-03] MEDS: Ibuprofen 600 MG Tablet PO ×3 (00:48→12:25)
[2020-12-03 01:59] VITALS: BP 107/59; PULSE 76; RESP 18; TEMP 36.7; O2SAT 97
[2020-12-03 08:20] VITALS: BP 111/62; PULSE 73; RESP 14; TEMP 36.3; O2SAT 97
[2020-12-03] MEDS: Enoxaparin 40 MG/0.4 ML Syringe SC (08:24)
[2020-12-03] MEDS: Senna/Docusate Sodium 1 Tablet PO (08:25)
--- NOTE | 2020-12-03 09:49 | PCM.PN.OB ---
Subjective: POD#2. Doing well. Is sore, but pain tolerable. Ambulating. . - Physical Exam Vitals/I&O's: Vital Signs Temp Pulse Resp BP Pulse Ox 97.3 F L 73 14 111/62 97 12/03/20 08:20 12/03/20 08:20 12/03/20 08:20 12/03/20 08:20 12/03/20 08:20 Oxygen Delivery Method Room Air Weight: 96.343 kg Body Mass Index (BMI) 34.2 Intake and Output for Last 24 Hours 12/01/20 12/02/20 12/03/20 23:59 23:59 23:59 Intake Total 4717.05 / 4717.05 Output Total 2700 / 2700 2550 / 2550 Balance -2550 / -2550 General: Alert, Oriented x3, No apparent distress HEENT: Atraumatic, Normocephalic Neck: Supple Lungs: Clear to auscultation, Normal air movement Cardiovascular: Regular rate Abdomen: Soft - dressing c/d. uterus 2 cm below umbilicus Extremities: No edema Neurological: Cranial nerves II-XII grossly intact Psych/Mental Status: Normal Affect Current Medications Acetaminophen (Acetaminophen 500 Mg Tablet) 1,000 mg PO Q6H [facility] Last Admin: 12/03/20 06:25 Dose: 1,000 mg Documented by: Bisacodyl (Bisacodyl 10 Mg Suppository) 10 mg RECTAL UD PRN PRN Reason: If no BM Enoxaparin Sodium (Enoxaparin 40 Mg/0.4 Ml Syringe) 40 mg SC DAILY [facility] Last Admin: 12/03/20 08:24 Dose: 40 mg Documented by: Hydrocortisone (Hydrocortisone 2.5% Crm) 1 applic TOPICAL TID PRN PRN; Protocol PRN Reason: Discomfort Ibuprofen (Ibuprofen 600 Mg Tablet) 600 mg PO Q6 [facility] Last Admin: 12/03/20 06:26 Dose: 600 mg Documented by: Lactobacillus Acidophilus (Lactobacillus Acidophilus) 1 tablet PO DAILY [facility] Last Admin: 12/03/20 08:25 Dose: 1 tablet Documented by: Naloxone HCl (Naloxone 0.4 Mg/Ml Syringe) 0.02 mg IV Q1M PRN PRN Reason: RR <10 and pt unresponsive Ondansetron HCl (Ondansetron 4 Mg/2 Ml Vial) 4 mg IV Q4H PRN PRN PRN Reason: Nausea Oxycodone HCl (Oxycodone 5 Mg Tablet) 5 - 10 mg PO Q4H PRN PRN PRN Reason: Pain Score 4-10 Multivit/Folic Acid/Iron ( Vits Tablet) 1 tablet PO DAILY@1200 [facility] Last Admin: 12/02/20 10:29 Dose: 1 tablet Documented by: Prochlorperazine Edisylate (Prochlorperazine 10 Mg/2 Ml Vial) 10 mg IV Q6H PRN PRN PRN Reason: NAUSEA Senna/Docusate Sodium (Senna/Docusate Sodium 1 Tablet) 1 - 2 tablet PO DAILY [facility] Last Admin: 12/03/20 08:25 Dose: 1 tablet Documented by: Simethicone (Simethicone 80 Mg Tablet) 80 mg PO PCHS PRN PRN Reason: Indigestion/stomach pain Last Admin: 12/03/20 06:25 Dose: 80 mg Documented by: Sodium Chloride (0.9% Saline Lock 10 Ml Syringe) 5 - 15 ml IV UD PRN PRN Reason: SALINE FLUSH Last Admin: 12/01/20 23:48 Dose: 10 ml Documented by: Zolpidem Tartrate (Zolpidem Tartrate 5 Mg Tablet) 5 mg ORAL QHS PRN PRN PRN Reason: Insomnia Medical Necessity - Tobacco Use Smoking Status: Never smoker Assessment/Plan POD#2 s/p repeat section. Breast feeding. Anemia - iron supplement at home. Home today.
[2020-12-03] MEDS: Prenatal Vits Tablet 1 TABLET PO (12:25)
== END 2020-12-03 12:50 | disposition home or self-care (01) | DRG 788 ==
PROVIDERS: Obstetrics & Gynecology; Admitting Provider Student in an Organized Health Care Education/Training Program; PCP Nurse Practitioner Primary Care; Referring Provider Student in an Organized Health Care Education/Training Program; Visit Provider Student in an Organized Health Care Education/Training Program
PROC: 10D00Z1 Extraction of Products of Conception, Low, Open Approach (ICD-10-PCS; CPT 59514; principal; 2020-12-01 07:15)
DX: O65.5 Obstructed labor due to abnormality of maternal pelvic organs (principal); O34.219 Maternal care for unspecified type scar from previous cesarean delivery; O99.02 Anemia complicating childbirth; D64.9 Anemia, unspecified; Z37.0 Single live birth; Z3A.39 39 weeks gestation of pregnancy
CPT/HCPCS: 85025; 85027; 86850; 86900; 86901; 99218; 99251; J7120; A4216; G0378; G0463; J2405

== ENCOUNTER → 2021-04-07 10:58 | Outpatient (CLI) | payer BC, SELFPAY ==
[2020-12-01 05:08] VITALS: BMI 34.2
[2021-04-07 12:20] LABS: Hematocrit 39.2 % (37-47); Hemoglobin 13.6 g/dL (12.0-15.0); Mean Corp Hgb Conc 34.7 g/dL (32-36); Mean Corpuscular Hgb 31.1 pg (27.0-32.0); Mean Corpuscular Volume 89.5 fL (81-99); Mean Platelet Vol. 10.6 fl (6.2-12.0); Platelet Count 221 K/mm3 (150-450); RBC Distribution Width CV 12.2 % (11.6-14.6); RBC Distribution Width SD 39.8 fl (35.1-43.9); Red Blood Count 4.38 M/mm3 (4.2-5.4); White Blood Count 5.5 K/mm3 (4.4-11.0)
[2021-04-07 12:31] LABS: T4 Free Direct 0.83 ng/dL (0.76-1.46); Thyroid Stim Hormone (TSH) 0.85 uIU/mL (0.358-3.74)
== END ==
PROVIDERS: PCP Nurse Practitioner Primary Care; Visit Provider Student in an Organized Health Care Education/Training Program
DX: R53.83 Other fatigue (principal)
CPT/HCPCS: 36415; 84439; 84443; 85027

== ENCOUNTER 2021-11-24 14:38 | Outpatient (CLI) | payer BC, SELFPAY ==
[2021-11-24 16:53] LABS: Hematocrit 38.3 % (37-47); Hemoglobin 13.6 g/dL (12.0-15.0); Mean Corp Hgb Conc 35.5 g/dL (32-36); Mean Corpuscular Hgb 31.2 pg (27.0-32.0); Mean Corpuscular Volume 87.8 fL (81-99); Mean Platelet Vol. 10.6 fl (6.2-12.0); Platelet Count 219 K/mm3 (150-450); RBC Distribution Width CV 12.4 % (11.6-14.6); RBC Distribution Width SD 39.8 fl (35.1-43.9); Red Blood Count 4.36 M/mm3 (4.2-5.4); White Blood Count 5.4 K/mm3 (4.4-11.0)
[2021-11-24 16:59] LABS: Vitamin B12 1050 pg/mL (211-911)
[2021-11-24 17:39] LABS: T4 Free Direct 0.81 ng/dL (0.76-1.46); Thyroid Stim Hormone (TSH) 1.58 uIU/mL (0.358-3.74)
== END 2021-11-24 23:59 | disposition short-term general hospital (02) ==
LOC: WOBLAB 14:39
PROVIDERS: PCP Nurse Practitioner Primary Care; Visit Provider Student in an Organized Health Care Education/Training Program
DX: R42 Dizziness and giddiness (principal); R20.2 Paresthesia of skin
CPT/HCPCS: 36415; 82607; 82746; 84439; 84443; 85027

== ENCOUNTER 2022-09-19 05:06 | Emergency (ER) | payer BC, SELFPAY ==
[2022-09-19 05:07] VITALS: BP 120/63; PULSE 95; RESP 13; TEMP 37.6; O2SAT 97; BMI 33.5
--- NOTE | 2022-09-19 05:11 | EX.ED.DYSGE1 ---
HPI History of Present Illness Chief Complaint: Syncope Informant: patient and spouse/S.O. Onset/Context/Timing Onset: Yesterday Context: Gradual Onset Timing: Continuous Quality: Weakness Location: Generalized Worsened by: Nothing Relieved by: Nothing Narrative Narrative: Patient presents with a syncopal episode that occurred tonight. states the patient has been feeling fatigued and had a fever since yesterday. states the patient was somewhat disoriented today and fell while trying to walk. Patient states she feels weak all over. Patient denies any chest pain. Patient does admit to a cough and some shortness of breath. Patient also admits to some urinary frequency and mild abdominal pain. Patient states she is currently trying to get . [facility] Medical History (Updated 09/19/22 @ 07:[address] Marco Brooks DO) Ectopic Home Medications oseltamivir 75 mg capsule 75 mg PO BID #10 CAPSULES 09/19/22 [Rx Last Taken Unknown] sertraline 50 mg tablet 50 mg PO DAILY 09/19/22 [History Last Taken Unknown] Allergy/AdvReac Type Severity Reaction Status Date / Time amoxicillin Allergy Rash Verified 12/01/20 05:27 Surgical History (Updated 09/19/22 @ 05:[address] Marco Brooks DO) History of section Social History Smoking Status: Never smoker ROS ROS ED Constitutional Constitutional ED: Reports fever(s); Denies chills Eyes Eyes: Denies blurry vision or change in vision ENT ENT ED: Denies rhinorrhea or sore throat Cardiovascular Cardiovascular: Denies chest pain or palpitations Respiratory/Chest Respiratory/Chest: Reports dyspnea; Denies cough Gastrointestinal Gastrointestinal: Reports abdominal pain and nausea; Denies vomiting Genitourinary Genitourinary ED: Reports urinary frequency; Denies dysuria or hematuria Musculoskeletal Musculoskeletal: Denies back pain or neck pain Integumentary Denies abscess or rash Neurologic Neurologic: Reports headache(s) and weakness Allergic/Immunologic Allergic/Immunologic ED: Denies mouth swelling or urticaria EXAM Physical Exam Const Vital Signs: 09/19/22 05:07 09/19/22 05:07 09/19/22 05:50 Temperature 99.6 F H Temperature Source Oral Pulse Rate 95 Pulse Rate [Lying] 93 Pulse Rate [Sitting (for 1 minute prior to obtaining)] 97 Pulse Rate [Standing (for 1 minute prior to obtaining)] 100 Respiratory Rate 13 Respiratory Effort Normal Respiratory Pattern Normal Blood Pressure 120/63 Blood Pressure [Lying] 108/61 Blood Pressure [Sitting (for 1 minute prior to obtaining)] 108/67 Blood Pressure [Standing (for 1 minute prior to obtaining)] 112/66 Blood Pressure Mean 82 Blood Pressure Mean [Lying] 76 Blood Pressure Mean [Sitting (for 1 minute prior to obtaining)] 80 Blood Pressure Mean [Standing (for 1 minute prior to obtaining)] 81 Pulse Ox 97 Oxygen Delivery Method Room Air Positive well nourished and well developed General Appearance ED: well developed HEENT Reports moist mucous membranes Eyes PERRL and EOMs intact bilaterally Neck supple and no JVD Resp normal respiratory effort and clear to auscultation bilaterally Cardio regular rate, regular rhythm and no murmurs GI normal to inspection, nondistended, normoactive bowel sounds Palpation: soft Extremity normal to inspection General Extremety ED: Negative for edema or tenderness General Extremity: Negative for edema Neuro oriented x3, CN's II-XII intact bilaterally and no sensory deficits noted Sensorium / Orientation: alert Motor Exam: strength 5/5 throughout Psych mental status grossly normal Skin no rashes or lesions noted MDM MDM MDM Narrative Medical decision making narrative: Patient was given IV fluids and Tylenol here. EKG was obtained. On my interpretation, it showed a normal sinus rhythm with a rate of 90. NM interval, QRS interval, and QTc intervals were all normal. [place] was normal. There are no acute ST or T wave changes. CBC was within normal limits. PT was INR and PTT were within normal limits. Comprehensive metabolic profile showed a mild hypokalemia of 3.2. High-sensitivity troponin was normal. Serum hCG was negative. Urinalysis does not show any evidence of urinary tract infection. CT scan of the brain was obtained. There is no acute intracranial abnormality. This was interpreted by the radiologist and reviewed by myself. D-dimer was elevated at 1.37. Because of this, CTA of the chest was obtained. There is no evidence of pulmonary embolism or aortic dissection. This was interpreted by the radiologist and reviewed by myself. Orthostatic vital signs were obtained and were negative. COVID-19 rapid antigen was obtained and was negative. Influenza A was positive. Influenza B was negative. Patient was given a dose of Tamiflu here. Patient was given a prescription for Tamiflu. Patient was instructed to drink plenty of fluids. Patient was instructed to follow-up with her primary care physician in 5 to 7 days. Patient and family understood and were agreeable with the plan. All questions were answered. Lab Data Attestation: I reviewed the patient's lab results. Labs: Laboratory Results - last 24 hr 09/19/22 09/19/22 09/19/22 04:46 04:46 04:46 WBC 5.4 RBC 4.42 Hgb 14.1 Hct 39.3 MCV 88.9 MCH 31.9 MCHC 35.9 RDW Std Deviation 40.1 RDW Coeff of Juan 12.5 Plt Count 148 L MPV 10.5 Immature Gran % (Auto) 0.200 Neut % (Auto) 72.9 H Lymph % (Auto) 16.4 L Kinney % (Auto) 9.0 Eos % (Auto) 0.9 Baso % (Auto) 0.6 Absolute Neuts (auto) 3.9 Absolute Lymphs (auto) 0.88 Nucleated RBC % 0 PT 13.8 INR 1.1 APTT 28.4 D-Dimer Quant (PE/DVT) 1.37 H* Sodium 139 Potassium 3.2 L Chloride 106 Carbon Dioxide 25.0 Anion Gap 8 BUN 10 Creatinine 0.91 Estim Creat Clear Calc 83.09 Est GFR (MDRD) Af Amer 92 Est GFR (MDRD) Non-Af 76 BUN/Creatinine Ratio 11.0 Glucose 132 H Calcium 8.6 Total Bilirubin 0.40 AST 31 ALT 51 Alkaline Phosphatase 58 Troponin I High Sens 3 Total Protein 7.2 Albumin 3.8 Globulin 3.4 Albumin/Globulin Ratio 1.1 Serum , Qual Urine Color Urine Clarity Urine pH Ur Specific [place] Urine Protein Urine Glucose (UA) Urine Ketones Urine Occult Blood Urine Nitrite Urine Bilirubin Urine Urobilinogen Ur Leukocyte Esterase Urine RBC Urine WBC Ur Squamous Epith Cells Urine Bacteria Urine Mucus 09/19/22 09/19/22 05:24 06:41 WBC RBC Hgb Hct MCV MCH MCHC RDW Std Deviation RDW Coeff of Juan Plt Count MPV Immature Gran % (Auto) Neut % (Auto) Lymph % (Auto) Kinney % (Auto) Eos % (Auto) Baso % (Auto) Absolute Neuts (auto) Absolute Lymphs (auto) Nucleated RBC % PT INR APTT D-Dimer Quant (PE/DVT) Sodium Potassium Chloride Carbon Dioxide Anion Gap BUN Creatinine Estim Creat Clear Calc Est GFR (MDRD) Af Amer Est GFR (MDRD) Non-Af BUN/Creatinine Ratio Glucose Calcium Total Bilirubin AST ALT Alkaline Phosphatase Troponin I High Sens Total Protein Albumin Globulin Albumin/Globulin Ratio Serum , Qual NEGATIVE Urine Color Yellow Urine Clarity Clear Urine pH 6.5 Ur Specific [place] 1.010 Urine Protein Negative Urine Glucose (UA) Normal Urine Ketones Negative Urine Occult Blood Negative Urine Nitrite Negative Urine Bilirubin Negative Urine Urobilinogen Normal Ur Leukocyte Esterase Negative Urine RBC 0 SEEN Urine WBC 0 SEEN Ur Squamous Epith Cells 0-5 SEEN Urine Bacteria RARE Urine Mucus 0 SEEN Radiography Diagnostic Testing: Clinical Impression(s) from Imaging Studies Brain CT 09/19/22 05:15 IMPRESSION: No evidence of acute intracranial abnormality. Electronically Signed: Nura Salmon MD at 5:49 EST , Chest CTA 09/19/22 06:04 IMPRESSION: 1. No pulmonary embolus 2. Severe pectus excavatum deformity Electronically Signed: Nura Salmon MD at 6:46 EST , EKG Initial EKG: Attestation: I personally reviewed and interpreted this EKG as follows: Interpretation: Sinus Rhythm (90) and No Acute Injury Pattern Prior EKG tracings: not available for review Prior: No Prior Discharge Plan Triage Chief Complaint: Syncope ED Provider: Marco Brooks Dx/Rx/DC Orders Clinical Impression: Influenza A, Syncope Instructions: ED Influenza (Adult) Prescriptions: New oseltamivir [oseltamivir] 75 mg capsule 75 mg PO BID Qty: 10 0RF No Action sertraline 50 mg tablet 50 mg PO DAILY Label Comments: TAKE 1 TABLET BY MOUTH EVERY DAY Primary Care Provider: Care Physician,No Primary Referrals: Ene Andres [employer] TE[employer], [employer] [facility] TE[facility]-C [Non-Staff] - 5-7 Days Disposition Disposition: Home, Self Care
--- NOTE | 2022-09-19 05:15 | CT_ITS ---
INDICATION: Syncope EXAMINATION: CT Head or Brain W/O Contrast Injection TECHNIQUE: Multiple axial images were obtained of the head without intravenous contrast. A radiation dose optimization technique was used for this scan. IV Contrast dosage and agent: None. COMPARISON: None FINDINGS: BRAIN PARENCHYMA: No intra- or extra-axial hemorrhage. No evidence of acute major territorial infarct. No intracranial mass or mass effect. There is preservation of the beach/white matter interface. Posterior fossa structures are unremarkable. CSF SPACES: Appropriate for age. No hydrocephalus. Basal cisterns are patent. CALVARIUM, SKULL BASE, PARANASAL SINUSES AND MASTOID AIR CELLS: Calvarium is intact. No acute findings within imaged paranasal sinuses. Mastoid air cells are well-pneumatized. ORBITS: No acute findings, as visualized. CT/Brain/Head without Contrast IMPRESSION: No evidence of acute intracranial abnormality. Electronically Signed: Nura Salmon MD at 5:49 EST ,
--- NOTE | 2022-09-19 05:15 | EKG12_ITS ---
Test Reason : DYSRHYTHMIA Blood Pressure : / mmHG Vent. Rate : 090 BPM Atrial Rate : 090 BPM P-R Int : 152 ms QRS Dur : 078 ms QT Int : 370 ms P-R-T Axes : 043 076 017 degrees QTc Int : 452 ms Normal sinus rhythm Normal ECG No previous ECGs available Confirmed by LILLIE CORRAL, MARIA FERNANDA ([id number]), city editor SAGAR TORRE ([id number]) on 09/25/2022 9:12:14 AM Referred By: GERARD Confirmed By:MARIA FERNANDA MOREIRA MD
[2022-09-19] MEDS: 0.9% Normal Saline 1,000 ML 1000 ML IV (05:18)
[2022-09-19] MEDS: Acetaminophen 500 MG Tablet 1000 MG PO (05:22)
[2022-09-19 05:24] LABS: Absolute Lymphocyte Count 0.88 X10^3/uL (0.83-4.51); Absolute Neutrophil Count 3.9 X10^3/uL (2.0-7.7); Basophil# 0.03 X10^3/uL; Basophil% 0.6 % (0-1); Eosinophil# 0.05 X10^3/uL; Eosinophils% 0.9 % (0-5); Hematocrit 39.3 % (37-47); Hemoglobin 14.1 g/dL (12.0-15.0); Lymphocyte # 0.88 X10^3/ul (0.83-4.51); Lymphocyte % 16.4 % (19-41); Mean Corp Hgb Conc 35.9 g/dL (32-36); Mean Corpuscular Hgb 31.9 pg (27.0-32.0); Mean Corpuscular Volume 88.9 fL (81-99); Mean Platelet Vol. 10.5 fl (6.2-12.0); Monocyte# 0.48 X10^3/uL; NRBC Flagged by Analyzer 0 % (0-5); Neutrophil # 3.91 X10^3/uL (2.7-7.7); Neutrophil % 72.9 % (47-70); Platelet Count 148 K/mm3 (150-450); RBC Distribution Width CV 12.5 % (11.6-14.6); RBC Distribution Width SD 40.1 fl (35.1-43.9); Red Blood Count 4.42 M/mm3 (4.2-5.4); White Blood Count 5.4 K/mm3 (4.4-11.0)
[2022-09-19 05:36] LABS: International Normalized Ratio 1.1; Prothrombin Time (Protime)PT. 13.8 SECONDS (11.7-14.9)
[2022-09-19 05:37] LABS: Partial Thromboplast Time 28.4 Seconds (24.1-36.2)
[2022-09-19 05:46] LABS: Internal QC Validated? YES +Cl - CLEAR BKGD; Pregnancy, Serum, hCG Quali. NEGATIVE Negative
[2022-09-19 05:50] VITALS: BP 108/61; BP 108/67; BP 112/66; PULSE 100; PULSE 93; PULSE 97
[2022-09-19 05:55] LABS: ALB/GLOB Ratio 1.1 RATIO (0.9-2.4); AST(SGOT) 31 U/L (15-37); Alanine Aminotransfer ALT/SGPT 51 U/L (13-56); Albumin, Serum 3.8 g/dL (3.2-5.0); Alkaline Phosphatase 58 U/L (45-117); Anion Gap 8 (5-15); BUN 10 mg/dL (7-18); Calcium,Total 8.6 mg/dL (8.5-10.1); Chloride 106 mmol/L (98-107); Creatinine, Serum 0.91 mg/dL (0.55-1.02); EST Glomerular Filtration Rate 76 mL/min (>60); Est Glom Filt Rate - Afr Amer 92 mL/min (>60); Estimated Creatinine Clearance 83.09 ml/min; Globulin 3.4 g/dL (2.2-4.2); Glucose 132 mg/dL (74-106); Potassium 3.2 mmol/L (3.5-5.1); Protein, Total 7.2 g/dL (6.4-8.2); Sodium Level 139 mmol/L (136-145); Troponin-I HS (w/2H Reflex) 3 pg/mL (3.0-54.0)
[2022-09-19 05:57] LABS: D-Dimer Quantitative (DVT/PE) 1.37 FEU/ug/m (0.27-0.49)
--- NOTE | 2022-09-19 06:04 | CT_ITS ---
STUDY: CTA CHEST REASON FOR EXAM: Female, 32 years old. Elevated d-dimer, syncopal episode, cough, shortness of breath. TECHNIQUE: CT angiogram of chest was performed with the intravenous administration of 100 ml [id number]. Post-processing of the angiographic images was performed, with MIP and MPR reconstructions. Individualized dose optimization techniques were used for this CT. COMPARISON: None. FINDINGS: PULMONARY ARTERIES: No pulmonary arterial filling defects identified. AORTA AND VISUALIZED GREAT VESSELS: No thoracic aortic aneurysm or dissection. Great vessels are patent. HEART AND PERICARDIUM: Heart size within normal limits. There is extrinsic compression of inferior heart secondary to pectus excavatum deformity. No significant pericardial effusion. MEDIASTINUM AND LAKISHA: No mediastinal or hilar adenopathy. Esophagus is unremarkable. LUNGS, PLEURA AND LARGE AIRWAYS: Mild bilateral dependent hypoventilatory changes. No pulmonary edema, mass or consolidation. Airways are patent. No pleural effusion or thickening. No pneumothorax. BONES: Pectus excavatum deformity present with Lukasz index of 3.55. No acute fracture. CHEST WALL: No chest wall mass. VISUALIZED ABDOMEN: No acute findings. CT/CTA Chest W/WO Contrast IMPRESSION: 1. No pulmonary embolus 2. Severe pectus excavatum deformity Electronically Signed: Nura Salmon MD at 6:46 EST ,
[2022-09-19 06:45] LABS: Mucous, Urine 0 SEEN /hpf (<or=2+); Red Blood Cells-Urine 0 SEEN /hpf (0-5); White Blood Cells 0 SEEN /hpf (0-5)
[2022-09-19 06:48] LABS: Color, Urine Yellow (Yellow); Glucose, Dipstick Normal (Normal); Ketone-Dipstick Negative (Negative); Leukocyte Esterase-Dipstick Negative /ul (Negative); Nitrite-Dipstick Negative (Negative); Occult Blood-Urine Negative /ul (Negative); Protein-Dipstick Negative (Negative); Urine Bilirubin Dipstick Negative (Negative); Urine Clarity Clear (Clear); Urine Urobilinogen Normal (Normal); Urine pH 6.5 (5.0 - 8.0)
[2022-09-19 06:55] LABS: Bacteria RARE /hpf (None Seen); Squamous Epithelial Cells - UA 0-5 SEEN /hpf (5-10)
[2022-09-19 07:19] VITALS: BP 105/65; PULSE 89; RESP 16; O2SAT 98
[2022-09-19] MEDS: Potassium Chloride Oral Tablet 20 MEQ 40 MEQ PO (07:19)
[2022-09-19] MEDS: Oseltamivir Phosphate 75 MG Capsule PO (07:19)
[2022-09-19 07:21] LABS: Reflex Troponin-HS? (from REC) Y
== END 2022-09-19 07:39 | disposition home or self-care (01) ==
PROVIDERS: Emergency Provider Emergency Medicine; Visit Provider Emergency Medicine
DX: J10.1 Influenza due to other identified influenza virus with other respiratory manifestations (principal); E87.6 Hypokalemia; R55 Syncope and collapse
CPT/HCPCS: 70450; 71275; 80053; 81001; 84484; 84703; 85025; 85379; 85610; 85730; 87428; 93005; 96360; 99285; Q9967

== ENCOUNTER → 2022-12-06 | Outpatient (CLI) | payer BC, SELFPAY ==
[2022-12-06 15:57] LABS: Bacteria 0 SEEN /hpf (None Seen); Mucous, Urine 0 SEEN /hpf (<or=2+); Red Blood Cells-Urine 0 SEEN /hpf (0-5); Squamous Epithelial Cells - UA 0 SEEN /hpf (5-10)
[2022-12-06 16:14] LABS: Color, Urine Yellow (Yellow); Glucose, Dipstick Normal (Normal); Ketone-Dipstick Negative (Negative); Leukocyte Esterase-Dipstick 100 /ul (Negative); Nitrite-Dipstick Negative (Negative); Occult Blood-Urine Negative /ul (Negative); Protein-Dipstick Negative (Negative); Specific Gravity, Urine 1.005 (1.002-1.030); Urine Bilirubin Dipstick Negative (Negative); Urine Clarity Clear (Clear); Urine Urobilinogen Normal (Normal)
[2022-12-06 16:42] LABS: White Blood Cells 0-5 SEEN /hpf (0-5)
== END | disposition home or self-care (01) ==
LOC: LABSPEC 15:36
PROVIDERS: Visit Provider Physician Assistant
DX: R30.0 Dysuria (principal)
CPT/HCPCS: 81001; 87077; 87086; 87088; 87186

== ENCOUNTER → 2023-01-01 | Outpatient (CLI) | payer BC, SELFPAY ==
[2023-01-01 15:25] LABS: Hemoglobin A1c 4.8 % (3.8-5.6)
[2023-01-01 15:54] LABS: Estradiol 80.4 pg/mL; Follicle Stimulating Hormone 5.3 mIU/mL; Luteinizing Hormone 13.2 mIU/mL; Thyroid Stim Hormone (TSH) 0.94 uIU/mL (0.358-3.74)
[2023-01-01 16:04] LABS: Progesterone Level 6.75 ng/mL (See Comment)
== END | disposition home or self-care (01) ==
LOC: WOBLAB 14:47
PROVIDERS: Visit Provider Student in an Organized Health Care Education/Training Program
DX: N97.9 Female infertility, unspecified (principal)
CPT/HCPCS: 36415; 82670; 83001; 83002; 83036; 84144; 84146; 84439; 84443

== ENCOUNTER → 2023-01-07 | Outpatient (CLI) | payer BC, SELFPAY ==
[2023-01-07 16:34] LABS: Progesterone Level 8.06 ng/mL (See Comment)
== END | disposition home or self-care (01) ==
LOC: WOBLAB 15:18
PROVIDERS: Visit Provider Student in an Organized Health Care Education/Training Program
DX: N97.9 Female infertility, unspecified (principal)
CPT/HCPCS: 36415; 84144

== ENCOUNTER → 2023-01-22 | Outpatient (CLI) | payer BC, SELFPAY ==
--- NOTE | 2023-01-22 11:54 | RAD_ITS ---
INDICATION: INFERTILITY EXAMINATION/TECHNIQUE: Routine hysterosalpingography was performed. Total Fluoroscopic Time: 20 seconds AND number of Fluoroscopic Images: 2 OR Radiation dosage index: 14.37 mGy COMPARISON: None. FINDINGS: The uterine cavity contour is unremarkable. There are no filling defects or abnormalities. Both fallopian tubes are patent with free peritoneal spillage bilaterally. RAD/Salpingogram IMPRESSION: Negative hysterosalpingogram. Electronically Signed: Negro Elam MD at 13:48 EDT ,
== END | disposition home or self-care (01) ==
PROVIDERS: Referring Provider Student in an Organized Health Care Education/Training Program; Visit Provider Student in an Organized Health Care Education/Training Program
DX: N97.9 Female infertility, unspecified (principal)
CPT/HCPCS: 58340; 74740

== ENCOUNTER → 2024-02-25 | Outpatient (CLI) | payer BC, SELFPAY ==
[2024-02-28 07:09] LABS: Chlamydia By Nucleic Acid AMP Negative (Negative); Gonococcus By Nucleic Acid AMP Negative (Negative)
== END | disposition home or self-care (01) ==
LOC: LABSPEC 15:26
PROVIDERS: Referring Provider Obstetrics & Gynecology; Visit Provider Obstetrics & Gynecology
DX: O09.90 Supervision of high risk pregnancy, unspecified, unspecified trimester (principal); Z3A.00 Weeks of gestation of pregnancy not specified
CPT/HCPCS: 87086; 87088; 87491; 87591

== ENCOUNTER → 2024-03-11 | Outpatient (CLI) | payer BC, SELFPAY ==
[2024-03-11 09:37] LABS: Absolute Lymphocyte Count 1.48 X10^3/uL (0.83-4.51); Absolute Neutrophil Count 5.4 X10^3/uL (2.0-7.7); Basophil# 0.05 X10^3/uL; Basophil% 0.7 % (0-1); Eosinophils% 1.3 % (0-5); Hematocrit 37.1 % (37-47); Hemoglobin 12.8 g/dL (12.0-15.0); Lymphocyte # 1.48 X10^3/ul (0.83-4.51); Lymphocyte % 19.7 % (19-41); Mean Corp Hgb Conc 34.5 g/dL (32-36); Mean Corpuscular Hgb 30.6 pg (27.0-32.0); Mean Corpuscular Volume 88.8 fL (81-99); Mean Platelet Vol. 10.3 fl (6.2-12.0); Monocyte# 0.48 X10^3/uL; Monocyte% 6.4 % (0-10); NRBC Flagged by Analyzer 0 % (0-5); Neutrophil # 5.38 X10^3/uL (2.7-7.7); Neutrophil % 71.5 % (47-70); Platelet Count 209 K/mm3 (150-450); RBC Distribution Width CV 12.2 % (11.6-14.6); RBC Distribution Width SD 39.4 fl (35.1-43.9); Red Blood Count 4.18 M/mm3 (4.2-5.4); White Blood Count 7.5 K/mm3 (4.4-11.0)
[2024-03-11 10:10] LABS: Hemoglobin A1c 4.8 % (3.8-5.6)
[2024-03-11 11:24] LABS: HIV - WCH Non-Reactive (Nonreactive); Hepatitis B Surface Antigen Non-Reactive (Nonreactive); Hepatitis C Antibody Non-Reactive (Nonreactive); Rubella IgG Reactive (Nonreactive); Syphilis Antibodies Non-reactive
== END | disposition home or self-care (01) ==
LOC: PAVLAB 09:19
PROVIDERS: Referring Provider Obstetrics & Gynecology; Visit Provider Obstetrics & Gynecology
DX: O99.210 Obesity complicating pregnancy, unspecified trimester (principal); Z3A.00 Weeks of gestation of pregnancy not specified
CPT/HCPCS: 36415; 83036; 85025; 86703; 86762; 86780; 86803; 86850; 86900; 86901; 87340

== ENCOUNTER → 2024-07-10 | Outpatient (CLI) | payer BC, SELFPAY ==
[2024-07-10 09:44] LABS: Absolute Lymphocyte Count 1.18 X10^3/uL (0.83-4.51); Absolute Neutrophil Count 6.5 X10^3/uL (2.0-7.7); Basophil# 0.05 X10^3/uL; Basophil% 0.6 % (0-1); Eosinophil# 0.09 X10^3/uL; Eosinophils% 1.1 % (0-5); Hematocrit 35.9 % (37-47); Lymphocyte # 1.18 X10^3/ul (0.83-4.51); Lymphocyte % 13.8 % (19-41); Mean Corp Hgb Conc 33.4 g/dL (32-36); Mean Corpuscular Hgb 31.4 pg (27.0-32.0); Mean Platelet Vol. 10.6 fl (6.2-12.0); Monocyte# 0.57 X10^3/uL; Monocyte% 6.7 % (0-10); NRBC Flagged by Analyzer 0 % (0-5); Neutrophil # 6.52 X10^3/uL (2.7-7.7); Neutrophil % 76.3 % (47-70); Platelet Count 171 K/mm3 (150-450); RBC Distribution Width SD 46.5 fl (35.1-43.9); Red Blood Count 3.82 M/mm3 (4.2-5.4); White Blood Count 8.5 K/mm3 (4.4-11.0)
[2024-07-10 09:47] LABS: Glucose Challenge Gest 1H 50g 136 mg/dL (70-140)
[2024-07-10 15:50] LABS: HIV - WCH Non-Reactive (Nonreactive); Syphilis Antibodies Non-reactive
== END | disposition home or self-care (01) ==
LOC: LAB 09:06
PROVIDERS: Referring Provider Obstetrics & Gynecology; Visit Provider Obstetrics & Gynecology
DX: O09.90 Supervision of high risk pregnancy, unspecified, unspecified trimester (principal); Z3A.00 Weeks of gestation of pregnancy not specified; Z13.1 Encounter for screening for diabetes mellitus
CPT/HCPCS: 36415; 82950; 85025; 86703; 86780

== ENCOUNTER → 2024-07-17 | Outpatient (CLI) | payer BC, SELFPAY ==
[2024-07-17 08:23] LABS: Bedside Glucose 99 mg/dL (74-106)
[2024-07-17 08:34] LABS: Glucose GTT-Gestation. Fasting 98 mg/dL (<105)
[2024-07-17 09:02] LABS: Glucose GTT-Gestational 1 Hr 172 mg/dL (<190)
[2024-07-17 09:42] LABS: Glucose GTT-Gestational 2 Hr 154 mg/dL (<165)
[2024-07-17 11:31] LABS: Glucose GTT-Gestational 3 Hr 106 L (<145)
== END | disposition home or self-care (01) ==
LOC: LAB 07:02
PROVIDERS: Referring Provider Advanced Practice Midwife; Visit Provider Advanced Practice Midwife
DX: O99.810 Abnormal glucose complicating pregnancy (principal); Z3A.00 Weeks of gestation of pregnancy not specified
CPT/HCPCS: 36415; 82951; 82952; 82962

== ENCOUNTER → 2024-08-11 | Outpatient (CLI) | payer BC, SELFPAY ==
[2024-08-11 12:17] LABS: ROM Internal Control Test YES-OK TO RESULT pt. (Internal QC); ROM Patient Test Negative (Negative)
== END | disposition home or self-care (01) ==
PROVIDERS: Referring Provider Obstetrics & Gynecology; Visit Provider Obstetrics & Gynecology
DX: O26.899 Other specified pregnancy related conditions, unspecified trimester (principal); N89.8 Other specified noninflammatory disorders of vagina; Z3A.00 Weeks of gestation of pregnancy not specified
CPT/HCPCS: 84112

== ENCOUNTER → 2024-09-08 | Outpatient (CLI) | payer BC, SELFPAY | END | disposition home or self-care (01) | LOC: LABSPEC 16:53 | PROVIDERS: Referring Provider Advanced Practice Midwife; Visit Provider Advanced Practice Midwife | DX: O09.90 Supervision of high risk pregnancy, unspecified, unspecified trimester (principal); Z3A.00 Weeks of gestation of pregnancy not specified | CPT/HCPCS: 87077; 87081; 87186 ==

== ENCOUNTER 2024-09-21 18:19 | Outpatient (CLI) | payer BC, SELFPAY ==
[2024-09-21 18:38] VITALS: BP 125/73; PULSE 81; RESP 16; TEMP 36.4; O2SAT 96
[2024-09-21 18:41] VITALS: BMI 37.7
[2024-09-21 20:34] VITALS: PULSE 83; RESP 16; TEMP 36.2; O2SAT 100
[2024-09-21 20:35] VITALS: BP 121/74; PULSE 84
[2024-09-22 04:12] VITALS: BP 137/74; PULSE 118; PULSE 134; O2SAT 96
[2024-09-22 04:17] VITALS: PULSE 138; O2SAT 97
--- NOTE | 2024-09-24 07:33 | OB.TRI.PN_ITS ---
Progress Notes Date of Service: 09/24/24 Progress Note: Patient presents for triage evaluation secondary to contractions at 38 weeks FHT: 130 Moderate variability reactive no decelerations category I tracing [place]: irregular Contractions Assessment and plan: no cervical change, Reactive NST, reassuring maternal and status patient discharged to home to follow-up, agrees would like to be d/c and follow up next morning in office. See problem list details for additional plan information. Charges/Coding Multi Select Codes Urinary/Genital Urinary/Genital CPT Codes: 66504-18 non-stress test Interp Assessment & Plan (1) Positive GBS test: COMMENT: treat in labor (2) Abnormal glucose affecting : COMMENT: 3 hr gtt normal but 36 week growth US-= 97th% AC. overall growth normal though. -start fasting glucose levels (3) Parvovirus affecting , antepartum: COMMENT: had history of hydrops earlier in - resolved. normal growth. plan weekly bpps 32 weeks on and delivery approved in [place]. (4) ascites: COMMENT: resolved on last US (5) Obesity affecting : COMMENT: HgbA1c added with NOB labs (6) Supervision of high-risk : COMMENT: PRR, , KIAH 10/04/24 boy Naseem Yadav, [place], Geo (7) : QUALIFIERS: Weeks of gestation: 38 weeks Qualified Code(s): Z3A.38 - 38 weeks gestation of COMMENT: discussed genetic & carrier testing- low risk NIPT. (8) False labor:
== END 2024-09-21 21:00 | disposition home or self-care (01) ==
LOC: WPOUT 18:21 → WP 18:23
PROVIDERS: Referring Provider Advanced Practice Midwife; Visit Provider Advanced Practice Midwife
DX: O47.1 False labor at or after 37 completed weeks of gestation (principal); O99.820 Streptococcus B carrier state complicating pregnancy; Z3A.38 38 weeks gestation of pregnancy; O99.213 Obesity complicating pregnancy, third trimester; O98.513 Other viral diseases complicating pregnancy, third trimester; B34.3 Parvovirus infection, unspecified; O99.810 Abnormal glucose complicating pregnancy
CPT/HCPCS: 59025; 59050; 99221; G0378

== ENCOUNTER 2024-09-22 10:50 | Inpatient (IN) | payer BC, SELFPAY ==
[2024-09-22] VITALS (15 sets, daily range): BP systolic 93–122; BP diastolic 55–83; PULSE 56–92; RESP 14–16; TEMP 35.7–36.4; O2SAT 96–100; BMI 37.7
[2024-09-22] MEDS: Acetaminophen 500 MG Tablet 1000 MG PO ×3 (11:28→23:03)
[2024-09-22] MEDS: Lactated Ringers 1,000 ML 999 ML IV (11:30)
[2024-09-22 11:53] LABS: Absolute Lymphocyte Count 1.46 X10^3/uL (0.83-4.51); Absolute Neutrophil Count 6.2 X10^3/uL (2.0-7.7); Basophil# 0.06 X10^3/uL; Basophil% 0.7 % (0-1); Eosinophil# 0.08 X10^3/uL; Eosinophils% 0.9 % (0-5); Hematocrit 37.1 % (37-47); Hemoglobin 12.9 g/dL (12.0-15.0); Lymphocyte # 1.46 X10^3/ul (0.83-4.51); Lymphocyte % 17.1 % (19-41); Mean Corp Hgb Conc 34.8 g/dL (32-36); Mean Corpuscular Hgb 32.2 pg (27.0-32.0); Mean Corpuscular Volume 92.5 fL (81-99); Mean Platelet Vol. 11.5 fl (6.2-12.0); Monocyte# 0.63 X10^3/uL; Monocyte% 7.4 % (0-10); NRBC Flagged by Analyzer 0 % (0-5); Neutrophil # 6.19 X10^3/uL (2.7-7.7); Neutrophil % 72.5 % (47-70); Platelet Count 172 K/mm3 (150-450); RBC Distribution Width CV 14.1 % (11.6-14.6); RBC Distribution Width SD 47.5 fl (35.1-43.9); Red Blood Count 4.01 M/mm3 (4.2-5.4); White Blood Count 8.5 K/mm3 (4.4-11.0)
[2024-09-22] MEDS: Gentamicin IV 300 MG in Dextrose 5%-Water (50mL Bag) 50 ML 100 MG IVPB (12:28)
[2024-09-22] MEDS: Sodium Citrate/Citric Acid 30 ML UDC PO (12:28)
[2024-09-22] MEDS: Clindamycin 900 MG/50 ML BAG 75 MG IV (12:29)
[2024-09-22] MEDS: Lactated Ringers 1,000 ML 150 ML IV (12:30)
[2024-09-22 13:07] LABS: Syphilis Antibodies Non-reactive
[2024-09-22] MEDS: Oxytocin 15 Units/NS 250ml 15 UNITS/250 ML IV.SOLN 83 UNITS IV (14:05)
[2024-09-22] MEDS: Ketorolac 30 MG/ML Syringe IV ×2 (14:51→21:03)
[2024-09-22 15:09] LABS: Pathology Specimen OB SEE PATHOLOGY REPORT
[2024-09-22] MEDS: Methylergonovine 0.2 MG/ML Ampul IM (15:58)
[2024-09-22] MEDS: 0.9% Saline Lock 10 ML Syringe IV ×2 (17:12→21:03)
[2024-09-23] VITALS (7 sets, daily range): BP systolic 91–114; BP diastolic 48–70; PULSE 70–89; RESP 14–16; TEMP 36.1–36.6; O2SAT 96–99
[2024-09-23] MEDS: Ketorolac 30 MG/ML Syringe IV ×2 (02:55→08:22)
[2024-09-23] MEDS: Enoxaparin 40 MG/0.4 ML Syringe SC (02:55)
[2024-09-23] MEDS: 0.9% Saline Lock 10 ML Syringe IV ×2 (02:55→08:22)
[2024-09-23] MEDS: Acetaminophen 500 MG Tablet 1000 MG PO ×3 (05:35→19:27)
[2024-09-23 06:04] LABS: Hematocrit 32.1 % (37-47); Mean Corp Hgb Conc 34.3 g/dL (32-36); Mean Corpuscular Hgb 32.4 pg (27.0-32.0); Mean Corpuscular Volume 94.4 fL (81-99); Mean Platelet Vol. 11.4 fl (6.2-12.0); Platelet Count 128 K/mm3 (150-450); RBC Distribution Width CV 14.5 % (11.6-14.6); RBC Distribution Width SD 48.6 fl (35.1-43.9); White Blood Count 8.2 K/mm3 (4.4-11.0)
[2024-09-23] MEDS: Senna/Docusate Sodium 1 Tablet PO (12:52)
[2024-09-23] MEDS: SimETHICONE 80 MG Chewable Tablet PO ×2 (12:56→18:14)
[2024-09-23] MEDS: Naproxen 500 MG Tablet PO ×2 (15:42→22:43)
[2024-09-23] MEDS: oxyCODONE 5 MG Tablet PO ×2 (18:14→19:27)
[2024-09-24] MEDS: Acetaminophen 500 MG Tablet 1000 MG PO ×2 (01:24→09:40)
[2024-09-24 01:31] VITALS: BP 108/61; PULSE 80; RESP 16; TEMP 36.4; O2SAT 97
[2024-09-24] MEDS: SimETHICONE 80 MG Chewable Tablet PO (01:44)
[2024-09-24] MEDS: Enoxaparin 40 MG/0.4 ML Syringe SC (01:44)
[2024-09-24] MEDS: oxyCODONE 5 MG Tablet PO (04:58)
[2024-09-24] MEDS: Naproxen 500 MG Tablet PO (07:06)
[2024-09-24 09:00] VITALS: BP 99/63; PULSE 96; RESP 16; TEMP 36.6; O2SAT 99
[2024-09-24] MEDS: FLU VACC 2024-25(6MOS UP)/PF 45 MCG/0.5 ML SYRINGE IM (09:41)
[2024-09-24] MEDS: Senna/Docusate Sodium 1 Tablet PO (09:41)
== END 2024-09-24 11:30 | disposition home or self-care (01) | DRG 785 ==
PROVIDERS: Admitting Provider Obstetrics & Gynecology; Referring Provider Obstetrics & Gynecology; Visit Provider Obstetrics & Gynecology
DX: O34.211 Maternal care for low transverse scar from previous cesarean delivery (principal); F43.22 Adjustment disorder with anxiety; O99.214 Obesity complicating childbirth; O99.344 Other mental disorders complicating childbirth; O99.892 Other specified diseases and conditions complicating childbirth; O99.824 Streptococcus B carrier state complicating childbirth; Z37.0 Single live birth; Z3A.39 39 weeks gestation of pregnancy; Z30.2 Encounter for sterilization; Z87.440 Personal history of urinary (tract) infections; O31.13X0 Continuing pregnancy after spontaneous abortion of one fetus or more, third trimester, not applicable or unspecified; Z86.19 Personal history of other infectious and parasitic diseases
CPT/HCPCS: 59025; 59050; 85025; 85027; 86780; 86850; 86900; 86901; 88302; 88307; 90656; 99221; J7120; A4216; G0378; J2405

== ENCOUNTER → 2024-11-09 | Outpatient (CLI) | payer BC, SELFPAY ==
[2024-11-12 14:08] LABS: HPV APTIMA, High Risk Negative (Negative)
== END | disposition home or self-care (01) ==
LOC: LABSPEC 11:41
PROVIDERS: Referring Provider Obstetrics & Gynecology; Visit Provider Obstetrics & Gynecology
DX: Z12.4 Encounter for screening for malignant neoplasm of cervix (principal)

== ENCOUNTER 2025-03-11 10:13 | Emergency (ER) | payer BC, SELFPAY ==
[2025-03-11 10:13] VITALS: BP 110/74; PULSE 88; RESP 16; TEMP 36.1; O2SAT 100
[2025-03-11 10:37] VITALS: BMI 30.7
--- NOTE | 2025-03-11 10:57 | RAD_ITS ---
EXAM: Two-view AP and lateral left tibia and fibula CLINICAL HISTORY: Injury/pain. COMPARISON: None. TECHNIQUE: Two-view AP and lateral left tibia and fibula. RAD/Tibia & Fibula 2 Views IMPRESSION: No radiopaque foreign body is seen. No soft tissue gas is noted. No fracture or dislocation is evident. If clinical concern persists, short-term follow-up imaging may be obtained to r ule out a currently occult fracture. Reading Location: [place] [id number]
--- NOTE | 2025-03-11 11:34 | ED.VIS.LOWEX ---
HPI History of Present Illness HPI Narrative: Patient presents with left lower leg and ankle injury that occurred today. Patient fell 1-2 steps and twisted her left ankle and lower leg. Patient denies any head injury or loss of consciousness. Patient describes her pain as aching and stabbing. Patient states it is worse with weightbearing and better with rest. Patient denies any paresthesias or weakness. Patient denies any other injuries. Patient states she did get nauseated after the injury but states this has improved. Chief Complaint: Lower Extremity Injury Informant: patient Occured/Mechanism Mechanism/Context: Yes fall Onset/Context/Timing Onset: Today Context: Sudden Onset Timing: Continuous Quality of Pain: Aching and Stabbing Location: Left lower leg and ankle Worsened by: Weightbearing, movement Relieved by: Rest Associated Symptoms Associated Symptoms: Negative for Parasthesia, Weakness or Loss of Funtion PFSH PFS Medical History delivery delivered Infertility depression Depression Anxiety Congenital pectus carinatum Ectopic Home Medications ?Medication ?Instructions ?Recorded ?Last Taken ?Type cholecalciferol (vitamin D3) 25 25 mcg PO QDAY 01/14/25 Unknown History mcg (1,000 unit) capsule sertraline 50 mg tablet (Zoloft) 75 mg (1.5 x 50 mg) PO DAILY #45 03/04/25 Unknown Rx tabs hydrocodone-acetaminophen 5-325mg 1 tab PO Q6H PRN PRN Pain 3 days 03/11/25 Unknown Rx 5mg-325mg #10 TABLETS Allergy/AdvReac Type Severity Reaction Status Date / Time amoxicillin Allergy Rash Verified 03/11/25 10:37 Family History Son Congenital pigmented melanocytic nevus of skin of left upper extremity Brother Seizures childhood only Surgical History Status post bilateral salpingectomy History of section Social History adopted: No household members: spouse and children number of children: 4 current occupational status: employed current occupation: [employer]- [employer] current occupational exposures/hazards: No pets and animals: Yes pets and animals: dog(s) history of recent travel: No sexually active: Yes Smoking Status: Never smoker alcohol intake: current alcohol intake frequency: holidays/special occasions only details: not while substance use type: does not use well-balanced diet: daily or most days caffeine: Yes Type: coffee Number of servings: 1 eating out: rarely or never during the past year weight has: increased > 10 lbs what type of physical activity do you participate in: none riri/bahai: Yazidism seatbelt use: always do you feel safe at home: Yes 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 Travel ROS ROS ED Constitutional Constitutional ED: Denies chills or fever(s) Eyes Eyes: Denies blurry vision or change in vision ENT ENT ED: Denies rhinorrhea or sore throat Cardiovascular Cardiovascular: Denies chest pain or palpitations Respiratory/Chest Respiratory/Chest: Denies cough or dyspnea Gastrointestinal Gastrointestinal: Reports nausea; Denies vomiting Genitourinary Genitourinary ED: Denies dysuria or hematuria Musculoskeletal Musculoskeletal: Denies back pain or neck pain Integumentary Denies abscess or rash Neurologic Neurologic: Denies headache(s) or weakness Allergic/Immunologic Allergic/Immunologic ED: Denies mouth swelling or urticaria EXAM Physical Exam Const Vital Signs: 03/11/25 10:13 Temperature 97 F L Temperature Source Temporal Pulse Rate 88 Respiratory Rate 16 Blood Pressure 110/74 Blood Pressure Mean 86 Pulse Ox 100 Oxygen Delivery Method Room Air Positive well nourished and well developed General Appearance ED: well developed and NAD HEENT Reports moist mucous membranes Neck full ROM and supple Extremity Extremity Narrative: There is tenderness with mild edema and ecchymosis over the anterolateral aspect of the left lower leg and ankle. There is no bony crepitance or step-off. There is no deformity noted. Range of motion was limited in all motions of the left ankle secondary to pain. Pedal pulses are equal bilaterally. Sensation was intact to light touch in all digits. Capillary refill was less than 2 seconds in all digits. Neuro oriented x3, CN's II-XII intact bilaterally, moves all extremities and no sensory deficits noted Sensorium / Orientation: alert Motor Exam: strength 5/5 throughout MDM MDM MDM Narrative Medical decision making narrative: Differential diagnosis includes fracture, sprain, and contusion. X-rays of the left tibia and fibula will be obtained to assess for fracture. Radiography Diagnostic Testing: Clinical Impression(s) from Imaging Studies Tibia/Fibula X-Ray 03/11/25 10:57 IMPRESSION: No radiopaque foreign body is seen. No soft tissue gas is noted. No fracture or dislocation is evident. If clinical concern persists, short-term follow-up imaging may be obtained to rule out a currently occult fracture. Reading Location: [place] [address] X-rays of the left tibia and fibula were obtained. There are 2 views. On my independent interpretation, there is no acute fracture or dislocation noted. Radiologist also interpreted the x-rays and agrees. Treatment and Re-Evaluation Narrative: Patient was advised of her findings. Patient was given a dose of [place] here. Patient was instructed to ice and elevate the left ankle. Patient was given an Aircast. Patient was given crutches. Patient was given a prescription for short course of [place]. Patient was instructed to follow-up with her primary care physician in 5 to 7 days. Patient understood and was agreeable with the plan. All questions were answered. Discharge Plan Triage Chief Complaint: Lower Extremity Injury ED Provider: Marco Brooks Dx/Rx/DC Orders Clinical Impression: Left ankle sprain, Fall Instructions: ED Ankle Sprain (Adult) Prescriptions: New hydrocodone-acetaminophen 5-325 mg tablet 1 tab PO Q6H PRN PRN (Reason: Pain) 3 Days Qty: 10 0RF No Action cholecalciferol (vitamin D3) 25 mcg (1,000 unit) capsule 25 mcg PO QDAY sertraline [Zoloft] 50 mg tablet 75 mg PO DAILY Qty: 45 9RF Primary Care Provider: Felisa Franklin NP Referrals: Felisa Franklin NP, [employer] [Primary Care Provider] - 5-7 Days Print Language: Tamazight Disposition Disposition: Home, Self Care
[2025-03-11] MEDS: HYDROcodone Bitartrate/Apap 5/325 Tablet PO (12:34)
[2025-03-11 12:38] VITALS: BP 126/78; PULSE 64; RESP 18; TEMP 37.1; O2SAT 99
== END 2025-03-11 12:39 | disposition home or self-care (01) ==
PROVIDERS: Emergency Provider Emergency Medicine; PCP Nurse Practitioner Primary Care; Visit Provider Emergency Medicine
DX: S93.402A Sprain of unspecified ligament of left ankle, initial encounter (principal); R11.0 Nausea; F41.9 Anxiety disorder, unspecified; F32.A Depression, unspecified; W10.9XXA Fall (on) (from) unspecified stairs and steps, initial encounter
CPT/HCPCS: 73590; 99284